=== PATIENT | female | born 1935 | race African-American/Black ===

== ENCOUNTER 2019-02-16 18:52 | Inpatient (IN) | payer OTHER ==
[~2019-02-16] VITALS: Ht 157.5 cm; Wt 81.8 kg
[2019-02-16] MEDS ORDERED: ONDANSETRON HCL 4MG/2ML INJ IV STA ×2 (19:59→23:00)
[2019-02-16] MEDS ORDERED: FAMOTIDINE 20MG/2ML VIAL IV STA (19:59)
[2019-02-16] MEDS ORDERED: SODIUM CHLORIDE 0.9% 500 ML IV ONE (19:59)
[2019-02-16] MEDS ORDERED: MORPHINE SULFATE 4 MG/ML CPJ (NOT FOR IM USE) IV ONE (20:30)
[2019-02-16 20:43] LABS: HEMATOCRIT. 44.5 % (36.0-48.0); HEMOGLOBIN. 14.8 g/dL (12.0-16.0); MEAN CORPUSCULAR HEMOGLOBIN 36.1 pg (28.0-32.0); MEAN CORPUSCULAR VOLUME 108.6 fL (81.0-99.0); MEAN PLATELET VOLUME 7.4 fl (7.4-10.4); PLATELET 313 x1000/uL (130-400); RED CELL DISTRIBUTION WIDTH 17.2 % (11.6-14.6)
[2019-02-16 21:21] LABS: PLATELET ESTIMATE NORMAL
[2019-02-16 22:09] LABS: CHLORIDE 101 mEq/L (98-107)
[2019-02-16 22:11] LABS: INR 1.1; PROTHROMBIN TIME 10.8 sec (9.6-11.0)
[2019-02-16] MEDS ORDERED: POTASSIUM CHLORIDE 20MEQ TABLET SR PO ONE (22:45)
[2019-02-16] MEDS ORDERED: VANCOMYCIN 1 G PREMIX 200 ML IV ONE (23:00)
[2019-02-16] MEDS ORDERED: MORPHINE SULFATE 4 MG/ML CPJ (NOT FOR IM USE) IV STA (23:00)
[2019-02-16] MEDS ORDERED: SODIUM CHLORIDE 0.9% 1000ML BAG (SEPSIS BOLUS) IV ONE (23:00)
[2019-02-16] MEDS ORDERED: PIPERACILLIN/TAZ 3.375G PREMIX 50 ML IV NR (23:00)
[2019-02-16] MEDS ORDERED: IOHEXOL-300 100 ML BOTTLE ONE (23:47)
[2019-02-17] MEDS ORDERED: MORPHINE SULFATE 4 MG/ML CPJ (NOT FOR IM USE) IV ONE (01:00)
[2019-02-17 04:22] LABS: CLARITY URINE CLEAR (CLEAR); COLOR URINE YELLOW (YELLOW); KETONES URINE NEGATIVE (NEGATIVE); LEUKOCYTE ESTERASE URINE 1+ (NEGATIVE); NITRITE URINE NEGATIVE (NEGATIVE); OCCULT BLOOD URINE NEGATIVE (NEGATIVE); PH URINE 6.5 (4.5-8.0); PROTEIN URINE TRACE (NEGATIVE); SPECIFIC GRAVITY URINE 1.054 (1.005-1.030); UROBILINOGEN URINE 0.2 E.U./dL (0.2-1.0)
[2019-02-17] MEDS ORDERED: SODIUM CHLORIDE 0.45% 1,000 ML IV SCH (05:31)
[2019-02-17] MEDS ORDERED: CLONIDINE 0.1MG TABLET PO PRN (05:45)
[2019-02-17] MEDS ORDERED: ACETAMINOPHEN 325MG TABLET PO PRN (05:45)
[2019-02-17] MEDS ORDERED: NA PHOS,M-B/NA PHOS,DI-BA ENEMA 118ML PR PRN (05:45)
[2019-02-17] MEDS ORDERED: IPRATROPIUM/ALBUTEROL 0.5-3(2.5)MG/3ML NEB NEB PRN (05:45)
[2019-02-17] MEDS ORDERED: DIPHENHYDRAMINE 50MG/ML VIAL IV PRN (05:45)
[2019-02-17] MEDS ORDERED: GUAIFENESIN 200MG/10ML SUGAR FREE UDC PO PRN (05:45)
[2019-02-17] MEDS ORDERED: MORPHINE SULFATE 2 MG/ML CPJ (NOT FOR IM USE) IV PRN (05:45)
[2019-02-17] MEDS ORDERED: LORAZEPAM 2MG/ML CPJ IV PRN (05:45)
[2019-02-17 06:40] LABS: CHLORIDE 105 mEq/L (98-107)
[2019-02-17] MEDS: ONDANSETRON HCL 4MG/2ML INJ IV PRN ×2 (06:49→17:46)
[2019-02-17 09:00] VITALS: BP 125/83
[2019-02-17] MEDS ORDERED: LEVOFLOXACIN 500MG PREMIX 100 ML IV SCH (10:00)
[2019-02-17] MEDS: HYDROCODONE/ACETAMINOPHEN 5/325MG TABLET PO PRN ×2 (10:52→20:08)
[2019-02-17 10:55] VITALS: BP 125/83
[2019-02-17 12:00] VITALS: BP 171/70
[2019-02-17] MEDS: METRONIDAZOLE 500 MG PREMIX 100 ML IV SCH ×3 (12:20→21:15)
[2019-02-17 16:00] VITALS: BP 117/72
[2019-02-17] MEDS: DOCUSATE SODIUM 100MG CAPSULE PO PRN (18:54)
[2019-02-17 20:00] VITALS: BP 156/77
[2019-02-18] VITALS: BP 150/76
[2019-02-18] MEDS: MAGNESIUM/ALUMINUM HYDROXIDE/SIMETHICONE 30ML UDC PO PRN ×2 (01:24→23:22)
[2019-02-18 04:00] VITALS: BP 149/77
[2019-02-18] MEDS ORDERED: LISI30TA36 PO (05:01)
[2019-02-18] MEDS ORDERED: LEVO50TA8 PO (05:01)
[2019-02-18] MEDS ORDERED: HYDR25TA PO (05:01)
[2019-02-18] MEDS: HYDROCODONE/ACETAMINOPHEN 5/325MG TABLET PO PRN ×3 (05:30→20:33)
[2019-02-18] MEDS: METRONIDAZOLE 500 MG PREMIX 100 ML IV SCH ×3 (05:31→22:48)
[2019-02-18 08:00] VITALS: BP 143/72
[2019-02-18] MEDS: LEVOFLOXACIN 250MG PREMIX 50 ML IV SCH (08:15)
[2019-02-18] MEDS ORDERED: ENOXAPARIN 40MG/0.4ML SYR SUBCUT SCH (10:00)
[2019-02-18] MEDS: ASPIRIN 81MG TABLET PO SCH (11:05)
[2019-02-18] MEDS: SODIUM CHLORIDE 0.9% 1,000 ML IV SCH ×2 (11:06→17:24)
[2019-02-18] MEDS: ONDANSETRON HCL 4MG/2ML INJ IV PRN (11:18)
[2019-02-18 11:46] LABS: HEMOGLOBIN. 14.8 g/dL (12.0-16.0); MEAN CORPUSCULAR HEMOGLOBIN 36.1 pg (28.0-32.0); MEAN CORPUSCULAR VOLUME 109.6 fL (81.0-99.0); MEAN PLATELET VOLUME 7.9 fl (7.4-10.4); PLATELET 232 x1000/uL (130-400); RED CELL DISTRIBUTION WIDTH 16.9 % (11.6-14.6)
[2019-02-18 12:00] VITALS: BP 146/88
[2019-02-18 14:08] LABS: PLATELET ESTIMATE NORMAL
[2019-02-18 14:58] VITALS: BP_SYST 133; BP_SYST 137; BP_SYST 138; BP_DIAS 57; BP_DIAS 61; BP_DIAS 63
[2019-02-18] MEDS ORDERED: ENOXAPARIN 40MG/0.4ML SYR SUBCUT NR (15:15)
[2019-02-18 16:00] VITALS: BP 145/67
[2019-02-18 16:35] LABS: HEMATOCRIT 43.2 % (36.0-48.0); HEMOGLOBIN 14.4 g/dL (12.0-16.0); MEAN CORPUSCULAR HEMOGLOBIN 36.2 pg (28.0-32.0); PLATELET 265 x1000/uL (130-400); RED BLOOD CELL COUNT 3.96 mill/uL (4.2-5.4); RED CELL DISTRIBUTION WIDTH 16.7 % (11.6-14.6)
[2019-02-18 16:45] LABS: CHLORIDE 101 mEq/L (98-107)
[2019-02-18 16:53] LABS: LDL CHOLESTEROL 11 mg/dL (5-100)
[2019-02-18 16:55] LABS: CREATINE KINASE 140 IU/L (26-192); HDL CHOLESTEROL 95 mg/dL (40-59)
[2019-02-18 16:57] LABS: T4 FREE 1.06 ng/dL (0.76-1.46)
[2019-02-18] MEDS: ENOXAPARIN 80MG/0.8ML SYR SUBCUT SCH (20:34)
[2019-02-19] VITALS: BP 144/87
[2019-02-19] MEDS: SODIUM CHLORIDE 0.9% 1,000 ML IV SCH ×3 (01:25→17:04)
[2019-02-19] MEDS: DOCUSATE SODIUM 100MG CAPSULE PO PRN (03:19)
[2019-02-19 04:00] VITALS: BP 130/77
[2019-02-19] MEDS: METRONIDAZOLE 500 MG PREMIX 100 ML IV SCH ×2 (05:41→14:50)
[2019-02-19 08:00] VITALS: BP 128/81
[2019-02-19] MEDS: ASPIRIN 81MG TABLET PO SCH (08:56)
[2019-02-19] MEDS: ENOXAPARIN 80MG/0.8ML SYR SUBCUT SCH ×2 (08:56→21:51)
[2019-02-19] MEDS: METOPROLOL TARTRATE 25MG TABLET PO SCH ×2 (09:01→21:51)
[2019-02-19 10:42] LABS: HEMATOCRIT 41.5 % (36.0-48.0); HEMOGLOBIN 13.8 g/dL (12.0-16.0); MEAN CORPUSCULAR HEMOGLOBIN 36.2 pg (28.0-32.0); MEAN CORPUSCULAR VOLUME 109.3 fL (81.0-99.0); PLATELET 234 x1000/uL (130-400); RED CELL DISTRIBUTION WIDTH 16.7 % (11.6-14.6)
[2019-02-19 10:46] LABS: CHLORIDE 103 mEq/L (98-107)
[2019-02-19] MEDS: LEVOFLOXACIN 250MG PREMIX 50 ML IV SCH (10:50)
[2019-02-19 12:00] VITALS: BP 152/86
[2019-02-19] MEDS ORDERED: LISINOPRIL 20MG TABLET PO SCH (12:00)
[2019-02-19] MEDS ORDERED: LEVOTHYROXINE SODIUM 50MCG TABLET PO SCH (12:15)
[2019-02-19] MEDS: MAGNESIUM/ALUMINUM HYDROXIDE/SIMETHICONE 30ML UDC PO PRN (14:57)
[2019-02-19 16:00] VITALS: BP 119/69
[2019-02-19] MEDS: HYDROCODONE/ACETAMINOPHEN 5/325MG TABLET PO PRN (17:05)
[2019-02-19 20:00] VITALS: BP 138/57
[2019-02-20] MEDS ORDERED: LEVOTHYROXINE SODIUM 50MCG TABLET PO SCH (07:10)
== END 2019-02-19 22:20 | disposition short-term general hospital (02) | DRG 871 ==
LOC: ER 18:52 → 8WST 02-17 00:57 → EDBEDREQDT 02-17 01:01 → EDBEDREQTM 02-17 01:01 → EDBEDREQ 02-17 01:01 → ENRESERV 02-17 07:08
PROVIDERS: ADMIT Internal Medicine; ATTEND Internal Medicine
DX: A41.9 Sepsis, unspecified organism (principal); K85.20 Alcohol induced acute pancreatitis without necrosis or infection; E87.2 Acidosis; N39.0 Urinary tract infection, site not specified; I47.1 Supraventricular tachycardia; I42.9 Cardiomyopathy, unspecified; E87.6 Hypokalemia; K70.0 Alcoholic fatty liver; E86.0 Dehydration; I10 Essential (primary) hypertension; I25.10 Atherosclerotic heart disease of native coronary artery without angina pectoris; E03.9 Hypothyroidism, unspecified; D72.829 Elevated white blood cell count, unspecified; E78.5 Hyperlipidemia, unspecified; Z95.5 Presence of coronary angioplasty implant and graft; Z95.0 Presence of cardiac pacemaker; Z90.710 Acquired absence of both cervix and uterus; Z87.891 Personal history of nicotine dependence; Z88.6 Allergy status to analgesic agent
CPT/HCPCS: 36415; 71045; 74177; 76705; 80048; 80061; 81003; 82550; 82553; 83036; 83605; 83880; 84439; 84443; 84484; 85027; 85379; 86850; 86900; 87077; 87186; 93005; 93306; 94640; 96365; 99291; J1650; J1956; J2060; J2270; J2405; J2543; J3370; J3490; J7030; J7040; J7042; Q9967